=== PATIENT | male | born 2000 | race African-American/Black ===

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

== ENCOUNTER 2020-06-28 04:17 | Emergency (ER) | payer SELFPAY ==
[2020-06-28] MEDS ORDERED: Bicillin LA 1.2 MILLION UNITS/2 ML SYRINGE ONE (04:31)
[2020-06-28] MEDS ORDERED: Dexamethasone 10 MG/ML VIAL ONE (04:32)
== END 2020-06-28 05:45 | disposition home or self-care (01) ==
LOC: ERS 04:17
DX: J02.9 Acute pharyngitis, unspecified (principal)
CPT/HCPCS: 96372; 99283; J0561; J1100

== ENCOUNTER 2021-04-25 14:29 | Emergency (ER) | payer SELFPAY ==
[2021-04-25] MEDS ORDERED: Dexamethasone 10 MG/ML VIAL ONE (17:34)
== END 2021-04-25 17:41 | disposition home or self-care (01) ==
LOC: ERS 14:29
DX: J02.9 Acute pharyngitis, unspecified (principal)
CPT/HCPCS: 87081; 87430; 99284; J1100